=== PATIENT | female | born 1965 | race Two or more races ===

== ENCOUNTER 2020-06-15 21:51 | Emergency (ER) | payer OTHER ==
[~2020-06-15] VITALS: Ht 170.2 cm; Wt 80.3 kg
[~2020-06-15 21:51] MED LIST: IBUPROFEN800 MG PO; ONDANSETRON ODT4 MG PO; XANAX0.5 MG PO
[2020-06-15 22:00] VITALS: BP 180/106
--- NOTE | 2020-06-15 22:22 | Emergency Room Report ---
History of Present Illness General Chief Complaint: Behavioral Complaint Source: Patient Present Illness HPI Disclaimer: Please note that this report is being documented using [employer] technology. This can lead to erroneous entry secondary to incorrect interpretation by the dictating instrument. HPI: 55-year-old female history of depression and anxiety presents for evaluation of auditory and visual hallucinations. Arrives by EMS. Reportedly she had taken a combination CBD and THC tablet approximately 2 PM today. Started hearing voices and seeing things. Believe people in her apartment. She discussed these thoughts with her sister who encouraged her to call 911. She denies SI/HI. She denies taking other drugs or alcohol today. States she is having racing thoughts and does not feel like herself. States is not happened before. She currently is not hearing any voices or having any visual hallucinations according to patient. She is no longer taking her Cymbalta PMH: Depression, anxiety PSH: Denied Allergies: Denied Social Hx: Regular alcohol use, occasional THC Allergies: Coded Allergies: No Known Allergies (Unverified , 11/12/12) COVID-19 Screening Contact w/high risk pt: No Experienced COVID-19 symptoms?: No COVID-19 Testing performed [employer]: No Patient History Last Menstrual Period: unk Nursing Documentation-PMH History Of Psychiatric Problem: Yes - depression Review of Systems All Other Systems: negative except mentioned in HPI Physical Exam Vital Signs Date Time Temp Pulse Resp B/P (MAP) Pulse Ox O2 Delivery O2 Flow Rate FiO2 06/15/20 21:52 98.8 100 18 180/106 (130) 98 Room Air General: Awake and alert, anxious appearing HEENT: NC/AT. EOMI. Cardiovascular: RRR. S1 and S2 normal. No murmur appreciated Resp: Normal work of breathing. No cough, wheezing or crackles appreciated Abdomen: Abdomen is soft, nondistended. Nontender Skin: Intact. No abrasions, laceration or rash over the exposed skin MSK: Normal tone and bulk. Moving all extremities. No obvious deformity. Neuro: Awake and alert. Mentating appropriately. Conversant. Somewhat tangential but redirectable. Seems anxious and somewhat paranoid but does not appear to be responding to internal stimuli. Medical Decision Making Diagnostic Impression: Primary Impression: Anxiety Additional Impressions: UTI (urinary tract infection) Behavioral change ER Course Is a 55-year-old female presenting for evaluation of auditory visual hallucinations. Differential includes was not limited to substance abuse, alcohol abuse, psychological disorder, medication noncompliance, electrolyte abnormality among others. Labs returned positive for THC and benzodiazepines for which the patient takes for anxiety. Urinalysis positive for urinary tract infection. Treated with ceftriaxone. Initially, the patient stated she wanted to speak to a psychiatrist however after several hours of waiting she stated she would rather go home and follow-up on an outpatient basis at this time. Our nurse spoke on the phone with her sister who is coming from [place] to stay with the patient. She denies current auditory visual hallucinations, HI, SI. She reports persistent anxiety with this is an ongoing issue. Her hallucinations earlier may be related to the THC use. She is stable for outpatient follow up. Continue antibiotics for UTI as outpatient. Instructed to return to ED with new or worsening symptoms Laboratory Tests Test 06/15/20 22:58 06/15/20 23:00 White Blood Count 7.7 K/UL (4.8-10.8) Red Blood Count 4.69 M/UL (4.20-5.40) Hemoglobin 12.0 G/DL (12.0-16.0) Hematocrit 39.6 % (37.0-47.0) Mean Corpuscular Volume 84 FL (80-99) Mean Corpuscular Hemoglobin 25.5 PG (27.0-31.0) L Mean Corpuscular Hemoglobin Concent 30.3 G/DL (32.0-36.0) L Red Cell Distribution Width 15.4 % (11.6-14.8) H Platelet Count 219 K/UL (150-450) Mean Platelet Volume 7.7 FL (6.5-10.1) Neutrophils (%) (Auto) 68.6 % (45.0-75.0) Lymphocytes (%) (Auto) 18.9 % (20.0-45.0) L Monocytes (%) (Auto) 10.5 % (1.0-10.0) H Eosinophils (%) (Auto) 0.2 % (0.0-3.0) Basophils (%) (Auto) 1.8 % (0.0-2.0) Sodium Level 144 MMOL/L (136-145) Potassium Level 3.5 MMOL/L (3.5-5.1) Chloride Level 106 MMOL/L (98-107) Carbon Dioxide Level 25 MMOL/L (21-32) Anion Gap 13 mmol/L (5-15) Blood Urea Nitrogen 14 mg/dL (7-18) Creatinine 1.2 MG/DL (0.55-1.30) Estimated Glomerular Filtration Rate 46.4 mL/min (>60) Glucose Level 117 MG/DL (74-106) H Calcium Level 8.9 MG/DL (8.5-10.1) Total Bilirubin 0.7 MG/DL (0.2-1.0) Aspartate Amino Transferase (AST) 20 U/L (15-37) Alanine Aminotransferase (ALT) 20 U/L (12-78) Alkaline Phosphatase 76 U/L (46-116) Total Protein 8.3 G/DL (6.4-8.2) H Albumin 4.1 G/DL (3.4-5.0) Globulin 4.2 g/dL Albumin/Globulin Ratio 1.0 (1.0-2.7) Salicylates Level 0.7 ug/mL (2.8-20) L Acetaminophen Level < 2 MCG/ML (10-30) L Serum Alcohol < 3 mg/dL Urine Color Yellow Urine Appearance Turbid Urine pH 5 (4.5-8.0) Urine Specific [place] 1.025 (1.005-1.035) Urine Protein 2+ (NEGATIVE) H Urine Glucose (UA) Negative (NEGATIVE) Urine Ketones 4+ (NEGATIVE) H Urine Blood 4+ (NEGATIVE) H Urine Nitrite Negative (NEGATIVE) Urine Bilirubin 2+ (NEGATIVE) H Urine Ictotest Negative (NEGATIVE) Urine Urobilinogen 1 MG/DL (0.0-1.0) H Urine Leukocyte Esterase 3+ (NEGATIVE) H Urine RBC 5-10 /HPF (0 - 2) H Urine WBC 15-20 /HPF (0 - 2) H Urine Squamous Epithelial Cells Moderate /LPF (NONE/OCC) H Urine Bacteria Many /HPF (NONE) H Urine HCG, Qualitative Negative (NEGATIVE) Urine Opiates Screen Negative (NEGATIVE) Urine Barbiturates Screen Negative (NEGATIVE) Phencyclidine (PCP) Screen Negative (NEGATIVE) Urine Amphetamines Screen Negative (NEGATIVE) Urine Benzodiazepines Screen Positive (NEGATIVE) H Urine Cocaine Screen Negative (NEGATIVE) Urine Marijuana (THC) Screen Positive (NEGATIVE) H Microbiology Date/Time Source Procedure Growth Status 06/16/20 02:06 Nasopharynx SARS-CoV-2 RdRp Gene Assay - Final Complete Last Vital Signs Date Time Temp Pulse Resp B/P (MAP) Pulse Ox O2 Delivery O2 Flow Rate FiO2 06/15/20 21:52 98.8 100 18 180/106 (130) 98 Room Air Disposition: HOME, SELF-CARE Condition: Stable Scripts Cephalexin* (KEFLEX*) 500 Mg Capsule 500 MG ORAL EVERY 12 HOURS, #14 CAP 0 Refills Prov: Miguel Obando MD 06/16/20 Miguel Obando MD Jun 15, 2020 22:21
[2020-06-15 23:12] LABS: APPEARANCE,URINE TURBID; BILIRUBIN, URINE 2+ (NEGATIVE); GLUCOSE, URINE (UA) NEGATIVE (NEGATIVE); KETONES,URINE 4+ (NEGATIVE); LEUKOCYTE ESTERASE ,URINE 3+ (NEGATIVE); NITRITE,URINE NEGATIVE (NEGATIVE); PH,URINE 5 (4.5-8.0); PROTEIN,URINE 2+ (NEGATIVE); UROBILINOGEN,URINE 1 MG/DL (0.0-1.0)
[2020-06-15 23:13] LABS: COLOR,URINE YELLOW
[2020-06-15 23:13] LABS: BASOPHILS % (AUTO) 1.8 % (0.0-2.0); EOSINOPHILS % (AUTO) 0.2 % (0.0-3.0); HEMATOCRIT 39.6 % (37.0-47.0); LYMPHOCYTES % (AUTO) 18.9 % (20.0-45.0); MEAN CORPUSCULAR VOLUME 84 FL (80-99); MONOCYTES % (AUTO) 10.5 % (1.0-10.0); NEUTROPHILS % (AUTO) 68.6 % (45.0-75.0); PLATELET COUNT 219 K/UL (150-450); RED BLOOD COUNT 4.69 M/UL (4.20-5.40); RED CELL DISTRIBUTION WIDTH 15.4 % (11.6-14.8); WHITE BLOOD COUNT 7.7 K/UL (4.8-10.8)
[2020-06-15 23:20] LABS: ANION GAP 13 mmol/L (5-15); BLOOD UREA NITROGEN 14 mg/dL (7-18); CALCIUM 8.9 MG/DL (8.5-10.1); CARBON DIOXIDE 25 MMOL/L (21-32); CHLORIDE 106 MMOL/L (98-107); CREATININE 1.2 MG/DL (0.55-1.30); POTASSIUM 3.5 MMOL/L (3.5-5.1); SODIUM 144 MMOL/L (136-145)
[2020-06-15 23:25] LABS: ALANINE AMINOTRANSFERASE 20 U/L (12-78); ALBUMIN 4.1 G/DL (3.4-5.0); ALKALINE PHOSPHATASE 76 U/L (46-116); ASPARTATE AMINO TRANSFERASE 20 U/L (15-37); BILIRUBIN,TOTAL 0.7 MG/DL (0.2-1.0)
[2020-06-15] MEDS ORDERED: cefTRIAXone 1 GM in NS 55 ML IVPB ONE (23:30)
[2020-06-16 02:00] VITALS: BP 142/88
[2020-06-16] MEDS ORDERED: CEPHALEXIN500 MG ORAL (03:06)
[2020-06-16 07:45] VITALS: BP 132/79
== END 2020-06-16 07:47 | disposition home or self-care (01) ==
LOC: EDBD 21:51 → EMR 22:40
DX: F41.9 Anxiety disorder, unspecified (principal); F91.9 Conduct disorder, unspecified; N39.0 Urinary tract infection, site not specified; F12.90 Cannabis use, unspecified, uncomplicated; F13.20 Sedative, hypnotic or anxiolytic dependence, uncomplicated
CPT/HCPCS: 36415; 80053; 80307; 81003; 81025; 85025; 87086; 96365; 99284; G0480; J0696; U0002; 87181